=== PATIENT | male | born 1975 | race Caucasian/White ===

== ENCOUNTER 2018-11-30 11:04 | Emergency (ER) | payer OTHER ==
[2018-11-30 11:14] VITALS: BP 119/73
--- NOTE | 2018-11-30 11:40 | UC ---
Bite Injury/Animal HPI - HPI Summary HPI Summary: 43-year-old man comes in with a chief complaint of a tick bite to the right shoulder. [place] in the [place] 3[place]4 days ago. Today and shower he noticed something on his right posterior shoulder and pulled it off and it's a tick. No rash no fevers no chills feels well otherwise. - History of Current Complaint Chief Complaint: [employer] Stated Complaint: TICK BITE Time Seen by Provider: 11/30/18 11:32 Pain Intensity: 0 - Allergies/Home Medications Allergies/Adverse Reactions: Allergies Allergy/AdvReac Type Severity Reaction Status Date / Time No Known Allergies Allergy Verified 11/30/18 11:14 Home Medications: Home Medications Ustekinumab [Stelara] 1 % IM 11/30/18 [History] PMH/Surg Hx/FS Hx/Imm Hx Previously Healthy: Yes - Surgical History Surgical History: Yes Surgery Procedure, Year, and Place: LYMPH NODE REMOVED FROM GROIN, WISDOM TEETH - Family History Known Family History: Positive: Non-Contributory - Social History Alcohol Use: Occasionally Substance Use Type: None Smoking Status (MU): Never Smoked Tobacco Review of Systems All Other Systems Reviewed And Are Negative: Yes Constitutional: Positive: Negative Skin: Positive: Negative Eyes: Positive: Negative ENT: Positive: Negative Respiratory: Positive: Negative Cardiovascular: Positive: Negative Gastrointestinal: Positive: Negative Motor: Positive: Negative Neurovascular: Positive: Negative Musculoskeletal: Positive: Negative Neurological: Positive: Negative Psychological: Positive: Negative Is Patient Immunocompromised?: No Physical Exam Triage Information Reviewed: Yes Appearance: Well-Appearing, No Pain Distress, Well-Nourished Vital Signs: Initial Vital Signs Temp 98 F 11/30/18 11:11 Pulse 61 11/30/18 11:11 Resp 17 11/30/18 11:11 BP 119/73 11/30/18 11:11 Pulse Ox 100 11/30/18 11:11 Vital Signs Reviewed: Yes Eye Exam: Normal Eyes: Positive: Conjunctiva Clear Neck: Positive: Supple Respiratory: Positive: No respiratory distress Musculoskeletal Exam: Normal Musculoskeletal: Positive: Strength Intact, ROM Intact Neurological Exam: Normal Neurological: Positive: Alert, Muscle Tone Normal Psychological Exam: Normal Psychological: Positive: Age Appropriate Behavior Skin Exam: Normal Bite Injury Course/Dx - Course Course Of Treatment: NO RASH - Differential Dx/Diagnosis Provider Diagnosis: Tick bite of right shoulder Discharge - Sign-Out/Discharge Documenting (check all that apply): Patient Departure All imaging exams completed and their final reports reviewed: No Studies - Discharge Plan Condition: Stable Disposition: HOME Prescriptions: DOXYcycline CAP(*) [DOXYcycline 100MG CAP(*)] 200 mg PO ONCE #2 cap Patient Education Materials: Tick Bite (ED) Referrals: Barron Whyte MD [Primary Care Provider] - Additional Instructions: FOLLOW UP WITH YOUR DOCTOR IF NOT COMPLETELY IMPROVED. GET RECHECKED SOONER IF YOUR CONDITION WORSENS; BULLS EYE RASH, SYMPTOMS OF LYME DISEASE OR ANY QUESTIONS OR CONCERNS. - Billing Disposition and Condition Condition: STABLE Disposition: Home
== END 2018-11-30 11:43 | disposition home or self-care (01) ==
LOC: UCEAST 11:04
DX: T63.481A Toxic effect of venom of other arthropod, accidental (unintentional), initial encounter (principal); Y92.9 Unspecified place or not applicable
CPT/HCPCS: 99212; G0463